=== PATIENT | male | born 1950 | race Caucasian/White ===

== ENCOUNTER 2018-09-13 12:49 | Day surgery (SDC) | payer MEDICARE, OTHER ==
[~2018-09-13] VITALS: Ht 182.9 cm; Wt 130.9 kg
[2018-09-13] MEDS ORDERED: ZOCOR 20MG20 MG PO (13:04)
[2018-09-13] MEDS ORDERED: GLUCOTROL XL5 MG/TAB PO (13:05)
[2018-09-13] MEDS ORDERED: ACTOS30 MG PO (13:05)
[2018-09-13] MEDS ORDERED: ERGOCALCIFER50000 IU PO (13:06)
[2018-09-13] MEDS ORDERED: COZAAR100 MG PO (13:06)
[2018-09-13] MEDS ORDERED: GLUCOPHAGE1000 MG PO (13:07)
[2018-09-13] MEDS ORDERED: CANA300T PO (13:07)
[2018-09-13] MEDS ORDERED: INSULIN N (N100 U/ML SQ (13:09)
[2018-09-13] MEDS ORDERED: INSULIN R (N100 U/ML SQ (13:10)
[2018-09-13 13:37] VITALS: BP 150/104; PULSE 80; TEMP 97.6
[2018-09-13 14:40] VITALS: BP 174/99; PULSE 70; TEMP 97.8
[2018-09-13 14:55] VITALS: BP 166/97; PULSE 72
[2018-09-13 15:10] VITALS: BP 157/90; PULSE 73
[2018-09-13 15:25] VITALS: BP 154/97; PULSE 75
== END 2018-09-13 15:35 | disposition home or self-care (01) ==
LOC: SDCO 12:49
DX: Z12.11 Encounter for screening for malignant neoplasm of colon (principal); K64.0 First degree hemorrhoids; I10 Essential (primary) hypertension; E11.9 Type 2 diabetes mellitus without complications; E78.00 Pure hypercholesterolemia, unspecified; Z98.52 Vasectomy status; Z79.4 Long term (current) use of insulin; Z91.030 Bee allergy status; Z86.010 Personal history of colon polyps
CPT/HCPCS: J2250; J3010; J7042